=== PATIENT | male | born 1975 | race Caucasian/White ===

== ENCOUNTER 2018-12-12 08:47 | Emergency (ER) | payer OTHER ==
[~2018-12-12] VITALS: Ht 170.2 cm; Wt 90.3 kg
[2018-12-12] MEDS ORDERED: IBUPROFEN800 MG PO (11:25)
[2018-12-12] MEDS ORDERED: NEURONTIN300 MG PO (11:25)
== END 2018-12-12 11:51 | disposition home or self-care (01) ==
LOC: ER 08:47
DX: M54.31 Sciatica, right side (principal)

== ENCOUNTER → 2025-02-24 | Emergency (ER) | payer OTHER ==
[~2025-02-24] VITALS: Ht 170.2 cm; Wt 93.0 kg
[~2025-02-24] MED LIST: DIPHTH,PERTUSS(ACELL),TET VAC 0.5 ML SYRINGE IM ONE; IBUPROFEN800 MG PO; NEURONTIN300 MG PO
== END | disposition home or self-care (01) ==
LOC: ER 10:27
DX: S61.213A Laceration without foreign body of left middle finger without damage to nail, initial encounter (principal); W26.8XXA Contact with other sharp object(s), not elsewhere classified, initial encounter; Y93.89 Activity, other specified; Y92.89 Other specified places as the place of occurrence of the external cause; Y99.8 Other external cause status
CPT/HCPCS: 12002; 90471; 90714; J1670